=== PATIENT | male | born 1970 | race Caucasian/White ===

== ENCOUNTER 2022-06-28 07:04 | Outpatient (CLI) | payer OTHER, SELFPAY ==
--- NOTE | 2022-06-28 07:15 | MR_ITS ---
[address] [address] Phone:?[phone] Fax:?[phone] Referring Physician Information: Afua Delacruz [address] [facility] [address] Phone:?[phone] Fax:?[phone] Patient:?Jason Garay D.O.B:?1970 Sex:?Male Phone:?[phone] [facility] MRN:?[id number] Exam Date:?06/28/2022 ? EXAM: MRI of the RIGHT HAND, without contrast CLINICAL INFORMATION: Male, 52 years old, with right hand pain. INDICATION: Evaluate for flexor tendon rupture. PRIOR SURGERY: None reported. PLAIN FILMS: None available. COMPARISONS: No prior MRIs available. TECHNICAL INFORMATION: Using a 1.5T MR scanner and a localizing surface coil: coronals: PD, T2, STIR sagittals: PD, T2 axials: PD, T2 SEDATION: None. CONTRAST: None. FINDINGS: Osseous structures of the right hand included are unremarkable without stress/occult fractures, bone marrow edema or osseous mass. A small subcortical cyst is present in the 3rd metacarpal head (coronal STIR series 4 image 16). The joints of the hand included are intact without pathologic narrowing or effusions. Collateral capsuloligamentous structures of the joints appear intact. Flexor and extensor tendons are intact, without rupture, tendinopathy, or tear. However, there is moderate tenosynovitis of the 3rd flexor tendons with abnormal separation of the flexor tendons from the proximal phalanx (sagittal PD series 6 image 18 and axial PD series 3 image 76). This is associated with apparent longitudinal splitting of the A2 fly (axial PD series 3 image 21). The remainder of the popliteus are intact. Musculature of the hand appears unremarkable without masses, rupture or strain. IMPRESSION: 1. Full-thickness longitudinal splitting/tearing of the A2 fly of the 3rd digit allowing for abnormal separation (bowstringing) of the 3rd flexor tendons from the proximal phalanx. 2. Associated moderate tenosynovitis of the 3rd flexor tendons, without tendinopathy or tendon split/tear. 3. No other myotendinous abnormality. 4. No fracture or osseous stress reaction. 5. No chondromalacia, osteochondral lesion, or pathologic joint effusion. BC Electronically signed on 06/28/2022 12:10:00 PM by Edwardo Valdez M.D.
== END 2022-06-28 07:05 | disposition home or self-care (01) ==
PROVIDERS: Visit Provider Physician Assistant Surgical
DX: S66.819A Strain of other specified muscles, fascia and tendons at wrist and hand level, unspecified hand, initial encounter (principal); M79.641 Pain in right hand; M65.841 Other synovitis and tenosynovitis, right hand
CPT/HCPCS: 73218

== ENCOUNTER 2024-02-13 08:56 | Outpatient (CLI) | payer OTHER, SELFPAY ==
--- NOTE | 2024-02-13 09:00 | XR_ITS ---
Patient: YANE GRECO Facility:?[facility] Patient ID:?[id number] Site Patient ID:?[id number]. Site :?1970 Study:?XRay-Spine Lumbar 3 view-02/13/2024 9:37:18 AM Ordering Physician:Tracey Final Report: INDICATION: Chronic low back pain TECHNIQUE: 2-view lumbar spine. COMPARISON: none FINDINGS: Density overlies the right side of the abdomen. No fracture. Vascular calcifications. Discogenic spurring. IMPRESSION: Mild degenerative disc disease mid lumbar spine. No fracture. Possible right renal stone. Dictated by Reddy Espinoza MD @ 02/13/2024 1:09:42 PM Signed by:?Reddy Espinoza MD @02/13/2024 1:09:42 PM (Electronic Signature)
--- NOTE | 2024-02-13 09:15 | XR_ITS ---
Patient: YANE GRECO Facility:?[facility] Patient ID:?[id number] Site Patient ID:?[id number]. Site :?1970 Study:?XRay-Pelvis Sacrum/Coccyx 3 view-02/13/2024 9:37:14 AM Ordering Physician:Tracey Final Report: Indication: Chronic low back pain Technique: Three views sacrum and coccyx Comparison: None Findings: Bones: Alignment is normal. No fractures or bone lesions. Joint spaces: Unremarkable. Soft tissues: Unremarkable. Impression: No acute or significant findings. Dictated by Reddy Espinoza MD @ 02/13/2024 12:59:33 PM Signed by:?Reddy Espinoza MD @02/13/2024 12:59:33 PM (Electronic Signature)
--- NOTE | 2024-02-13 09:45 | XR_ITS ---
Patient: YANE GRECO Facility:?[facility] Patient ID:?[id number] Site Patient ID:?[id number]. Site :?1970 Study:?XRay-Spine Thoracic 2 view-02/13/2024 9:37:16 AM Ordering Physician:Tracey Final Report: INDICATION: Chronic low back pain TECHNIQUE: 3-view thoracic spine. COMPARISON: none FINDINGS: Multilevel disc space narrowing and spurring in the mid and lower thoracic spine. No fracture. Calcified density associated with the upper spine which appears to represent osteophytes or vascular calcifications. IMPRESSION: Degenerative disc disease. No fracture. Dictated by Reddy Espinoza MD @ 02/13/2024 1:07:24 PM Signed by:?Reddy Espinoza MD @02/13/2024 1:07:24 PM (Electronic Signature)
== END 2024-02-13 08:57 | disposition home or self-care (01) ==
PROVIDERS: Visit Provider Chiropractor
DX: M54.50 Low back pain, unspecified (principal); M51.86 Other intervertebral disc disorders, lumbar region
CPT/HCPCS: 72070; 72100; 72220